=== PATIENT | female | born 1985 | race Caucasian/White ===

== ENCOUNTER 2022-07-13 15:40 | Outpatient (RCR) | payer OTHER ==
[2022-07-06 16:26] VITALS: BP 101/51
[2022-07-06] MEDS: FERRIC CARBOXYMALTOSE INJ 750 MG in NS (IVPB) 250 ML IV SCH (16:46)
[~2022-07-13] VITALS: Ht 157.2 cm; Wt 75.0 kg
[2022-07-13] MEDS: FERRIC CARBOXYMALTOSE INJ 750 MG in NS (IVPB) 250 ML IV SCH (15:56)
[2022-07-13 16:03] VITALS: BP 96/53
== END 2022-07-25 ==
LOC: SDC 15:40
PROVIDERS: ATTEND Internal Medicine
DX: D50.9 Iron deficiency anemia, unspecified (principal)
CPT/HCPCS: 96365

== ENCOUNTER 2023-03-19 10:21 | Emergency (ER) | payer OTHER ==
[2023-03-19] MEDS ORDERED: NS IV 1000 ML 1,000 ML IV STA ×2 (10:34→12:44)
[2023-03-19 10:42] LABS: BASOPHILS # (AUTO) 0.1 10^3/uL (0.0-0.1); BASOPHILS % (AUTO) 1 % (0-10); EOSINOPHILS # (AUTO) 0.1 10^3/uL (0.0-0.3); EOSINOPHILS % (AUTO) 1 % (0-10); HEMATOCRIT 43 % (35-52); HEMOGLOBIN 14.1 g/dL (11.5-16.0); LYMPHOCYTES # (AUTO) 2.3 10^3/uL (1.0-4.0); LYMPHOCYTES % (AUTO) 23 % (12-44); MEAN CORPUSCULAR HEMOGLOBIN 31 pg (25-34); MEAN CORPUSCULAR HGB CONC 33 g/dL (32-36); MEAN CORPUSCULAR VOLUME 93 fL (80-99); MEAN PLATELET VOLUME 10.4 fL (9.0-12.2); MONOCYTES # (AUTO) 0.5 10^3/uL (0.0-1.0); MONOCYTES % (AUTO) 5 % (0-12); NEUTROPHILS # (AUTO) 7.1 10^3/uL (1.8-7.8); NEUTROPHILS % (AUTO) 70 % (42-75); PLATELET COUNT 289 10^3/uL (130-400)
[2023-03-19 10:50] LABS: ALBUMIN 4.6 GM/DL (3.2-4.5); CHLORIDE 104 MMOL/L (98-107); POTASSIUM 4.2 MMOL/L (3.6-5.0); SODIUM 138 MMOL/L (135-145)
[2023-03-19 10:52] LABS: CALCIUM 9.8 MG/DL (8.5-10.1)
[2023-03-19 10:53] LABS: GLUCOSE 89 MG/DL (70-105); TOTAL PROTEIN 7.6 GM/DL (6.4-8.2)
[2023-03-19 10:54] LABS: BILIRUBIN,TOTAL 0.3 MG/DL (0.1-1.0); CARBON DIOXIDE 26 MMOL/L (21-32)
[2023-03-19 10:56] LABS: ALKALINE PHOSPHATASE 68 U/L (40-136)
[2023-03-19 10:57] LABS: CREATININE SERUM 0.72 MG/DL (0.60-1.30); GFR ESTIMATED 110
[2023-03-19 10:58] LABS: BUN/CREATININE RATIO 8
[2023-03-19 10:59] LABS: ALANINE AMINOTRANSFERASE 13 U/L (0-55); MAGNESIUM 2.2 MG/DL (1.6-2.4)
--- NOTE | 2023-03-19 11:11 | Diagnostic Imaging Report ---
PROCEDURE: CT head without contrast. TECHNIQUE: Multiple contiguous axial images were obtained through the brain without the use of intravenous contrast. Auto Exposure Controls were utilized during the CT exam to meet ALARA standards for radiation dose reduction. INDICATION: Lethargy and weakness. No prior studies are available for comparison. FINDINGS: Ventricles and sulci are within normal limits. No sulcal effacement or midline shift is identified. No acute intra-axial or extra-axial hemorrhage is detected. Cisterns are patent. Visualized paranasal sinuses are clear. IMPRESSION: No acute intracranial process is detected. Dictated by: Dictated on workstation # [id number]
--- NOTE | 2023-03-19 11:18 | ED General ---
General Chief Complaint: Altered Mental Status Stated Complaint: WEAKNESS/SLURRED WORDS/SHAKEY Nursing Triage Note: PT TO RM 1 PER W/C PT STATES CALLED HIM APPROX 1 HR AGO W LETHERAGY, WEAKNESS, AND BEING VERY TIRED. PT STATES ALL I WANT TO DO IS SLEEP. PT STATES TOOK 1/2 GUMMY LAST PM. PT IS ABLE TO OPEN EYES AND TALK TO STAFF. PT IS ABLE TO MOVE ALL EXT. History of Present Illness Date Seen by Provider: Mar 19, 2023 Time Seen by Provider: 10:25 Initial Comments 37-year-old female brought in by her because of complaints of lethargy, weakness and being very tired. Patient reports all she wants to do a sleep. Patient denies any recent illness fever or chills. Patient does report she took a half a gummy last night. She denies any other medications or drugs that she took today. She is able to answer all questions appropriately, open her eyes and talk to staff. She is also able to move all her extremities. Allergies and Home Medications Allergies Coded Allergies: wheat (Verified Allergy, Unknown, 07/06/22) Uncoded Allergies: lobster (Allergy, Unknown, 07/06/22) Patient Home Medication List Home Medication List Reviewed: Yes Review of Systems Review of Systems Constitutional: see HPI EENTM: no symptoms reported Respiratory: no symptoms reported Gastrointestinal: no symptoms reported Musculoskeletal: no symptoms reported Skin: no symptoms reported Psychiatric/Neurological: See HPI Past Avifdpv-Zredih-Hotilv Hx Patient Social History Tobacco Use?: No Substance use?: Yes Substance type: Marijuana Additional substance use comme: GUMMIES Substance frequency: Once in a while Alcohol Use?: No Pt feels they are or have been: No Immunizations Up To Date Influenza Vaccine Up-to-Date: No; Not Current First/Initial COVID19 Vaccinat: YES Second COVID19 Vaccination Brayden: YES Third COVID19 Vaccination Date: YES Past Medical History Surgery/Hospitalization HX: TUBAL, MIGRAINES AND IBS Last Menstrual Period: Mar 19, 2023 Physical Exam Vital Signs Vital Signs - First Documented 03/19/23 10:25 Temp 37.6 Pulse 79 Resp 17 B/P (MAP) 117/98 (104) Pulse Ox 100 O2 Delivery Room Air Capillary Refill : Less Than 3 Seconds Height, Weight, BMI Height: '" Weight: lbs. oz. kg; 30.34 BMI Method: General Appearance: No Apparent Distress Eyes: Bilateral Eye PERRL, Bilateral Eye EOMI HEENT: PERRL/EOMI, Moist Mucous Membranes Respiratory: Lungs Clear, Normal Breath Sounds Cardiovascular: Regular Rate, Rhythm, No Edema Extremity: Normal Capillary Refill, Normal Inspection, Normal Range of Motion Neurologic/Psychiatric: Oriented x3, No Motor/Sensory Deficits, Other (Fatigued acting) Skin: Normal Color, Warm/Dry Focused Exam Lactate Level 03/19/23 10:45: Lactic Acid Level 1.42 Lactic Acid Level Laboratory Tests Test 03/19/23 10:45 Lactic Acid Level 1.42 MMOL/L (0.50-2.00) Progress/Results/Core Measures Suspected Sepsis SIRS Temperature: Pulse: 79 Respiratory Rate: 17 Laboratory Tests 03/19/23 10:30: White Blood Count 10.0 Blood Pressure 117 /98 Mean: 104 03/19/23 10:45: Lactic Acid Level 1.42 Laboratory Tests 03/19/23 10:30: Creatinine 0.72, Platelet Count 289, Total Bilirubin 0.3 Results/Orders Lab Results Laboratory Tests Test 03/19/23 10:30 03/19/23 10:40 03/19/23 10:45 03/19/23 11:14 Range/Units White Blood Count 10.0 4.3-11.0 10^3/uL Red Blood Count 4.58 3.80-5.11 10^6/uL Hemoglobin 14.1 11.5-16.0 g/dL Hematocrit 43 35-52 % Mean Corpuscular Volume 93 80-99 fL Mean Corpuscular Hemoglobin 31 25-34 pg Mean Corpuscular Hemoglobin Concent 33 32-36 g/dL Red Cell Distribution Width 12.2 10.0-14.5 % Platelet Count 289 130-400 10^3/uL Mean Platelet Volume 10.4 9.0-12.2 fL Immature Granulocyte % (Auto) 0 % Neutrophils (%) (Auto) 70 42-75 % Lymphocytes (%) (Auto) 23 12-44 % Monocytes (%) (Auto) 5 0-12 % Eosinophils (%) (Auto) 1 0-10 % Basophils (%) (Auto) 1 0-10 % Neutrophils # (Auto) 7.1 1.8-7.8 10^3/uL Lymphocytes # (Auto) 2.3 1.0-4.0 10^3/uL Monocytes # (Auto) 0.5 0.0-1.0 10^3/uL Eosinophils # (Auto) 0.1 0.0-0.3 10^3/uL Basophils # (Auto) 0.1 0.0-0.1 10^3/uL Immature Granulocyte # (Auto) 0.0 0.0-0.1 10^3/uL Sodium Level 138 135-145 MMOL/L Potassium Level 4.2 3.6-5.0 MMOL/L Chloride Level 104 98-107 MMOL/L Carbon Dioxide Level 26 21-32 MMOL/L Anion Gap 8 5-14 MMOL/L Blood Urea Nitrogen 6 L 7-18 MG/DL Creatinine 0.72 0.60-1.30 MG/DL Estimat Glomerular Filtration Rate 110 BUN/Creatinine Ratio 8 Glucose Level 89 70-105 MG/DL Glucometer 90 70-110 MG/DL Calcium Level 9.8 8.5-10.1 MG/DL Corrected Calcium 8.5-10.1 MG/DL Magnesium Level 2.2 1.6-2.4 MG/DL Total Bilirubin 0.3 0.1-1.0 MG/DL Aspartate Amino Transf (AST/SGOT) 16 5-34 U/L Alanine Aminotransferase (ALT/SGPT) 13 0-55 U/L Alkaline Phosphatase 68 40-136 U/L C-Reactive Protein High Sensitivity 0.24 0.00-0.50 MG/DL Total Protein 7.6 6.4-8.2 GM/DL Albumin 4.6 H 3.2-4.5 GM/DL Serum Alcohol < 10 <10 MG/DL Influenza Type A (RT-PCR) Not Detected Not Detecte Influenza Type B (RT-PCR) Not Detected Not Detecte SARS-CoV-2 RNA (RT-PCR) Not Detected Not Detecte Lactic Acid Level 1.42 0.50-2.00 MMOL/L Urine Color YELLOW Urine Clarity CLEAR Urine pH 7.0 5-9 Urine Specific [place] 1.010 L 1.016-1.022 Urine Protein NEGATIVE NEGATIVE Urine Glucose (UA) NEGATIVE NEGATIVE Urine Ketones NEGATIVE NEGATIVE Urine Nitrite NEGATIVE NEGATIVE Urine Bilirubin NEGATIVE NEGATIVE Urine Urobilinogen 0.2 < = 1.0 MG/DL Urine Leukocyte Esterase TRACE H NEGATIVE Urine RBC (Auto) TRACE H NEGATIVE Urine RBC RARE /HPF Urine WBC 2-5 /HPF Urine Squamous Epithelial Cells 5-10 /HPF Urine Crystals NONE /LPF Urine Bacteria TRACE /HPF Urine Casts NONE /LPF Urine Mucus NEGATIVE /LPF Urine Culture Indicated NO Urine Opiates Screen NEGATIVE NEGATIVE Urine Oxycodone Screen NEGATIVE NEGATIVE Urine Methadone Screen NEGATIVE NEGATIVE Urine Propoxyphene Screen NEGATIVE NEGATIVE Urine Barbiturates Screen NEGATIVE NEGATIVE Ur Tricyclic Antidepressants Screen NEGATIVE NEGATIVE Urine Phencyclidine Screen NEGATIVE NEGATIVE Urine Amphetamines Screen NEGATIVE NEGATIVE Urine Methamphetamines Screen NEGATIVE NEGATIVE Urine Benzodiazepines Screen POSITIVE H NEGATIVE Urine Cocaine Screen NEGATIVE NEGATIVE Urine Cannabinoids Screen NEGATIVE NEGATIVE My Orders Orders - KINCAID,VALENTINA L DO Cbc And Automated Diff (03/19/23 10:34) Comprehensive Metabolic Panel (03/19/23 10:34) Hs C Reactive Protein (03/19/23 10:34) Drug Screen Stat (Urine) (03/19/23 10:34) Lactic Acid Analyzer (03/19/23 10:34) Magnesium (03/19/23 10:34) Ua Culture If Indicated (03/19/23 10:34) Influenza A And B By Pcr (03/19/23 10:34) Covid 19 Inhouse Test (03/19/23 10:34) Ct Head Wo (03/19/23 10:34) Ns Iv 1000 Ml (Ns Iv 1000 Ml) (03/19/23 10:34) Alcohol (03/19/23 12:03) Ketorolac Injection (Ketorolac Injection (03/19/23 12:44) Diphenhydramine Injection (Diphenhydram (03/19/23 12:44) Metoclopramide Injection (Metoclopramide (03/19/23 12:44) Ns Iv 1000 Ml (Ns Iv 1000 Ml) (03/19/23 12:44) Ekg Tracing (03/19/23 10:32) Vital Signs/I&O 03/19/23 10:25 Temp 37.6 Pulse 79 Resp 17 B/P (MAP) 117/98 (104) Pulse Ox 100 O2 Delivery Room Air Capillary Refill : Less Than 3 Seconds Blood Pressure Mean: 104 Point of Care Testing Finger Stick Blood Glucose: 90 Blood Glucose Action Taken: PROVIDER NOTIFIED Progress Note : Progress Note Patient's diagnostic studies were ordered reviewed and interpreted by me. Patient had no acute findings on any of her electrolytes, CBC. Patient had a negative head CT. Patient's UDS was positive for opiates otherwise no acute findings. Patient denies any opiate ingestion. Patient was able to answer all questions appropriately while she was here. She did appear to be somewhat fatigued/lethargic which would be consistent with possible opiate ingestion. Patient would have episodes with extremity shaking/tremoring but was not seizure-like activity as she would stop and talk to throughout. Patient was having a pseudoseizure type activity with these with unknown cause. Patient has a significant migraine history so is concerned about a possible migraine with aura causing her symptoms and she was treated with a migraine cocktail. Patient slept with no further "shaking activity". Patient will be discharged home with recommendations to follow-up with her neurologist due to her pseudo seizure-like activity and migraine history for further outpatient evaluation. She was stable upon discharge ECG Initial ECG Impression Date: Mar 19, 2023 Initial ECG Impression Time: 10:32 Initial ECG Rate: 78 Initial ECG Rhythm: Normal Sinus Initial ECG Impression: Normal Diagnostic Imaging Diagonstic Imaging: CT Plain Films/CT/US/NM/MRI: head Comments Date of Exam:03/19/23 CT HEAD WO PROCEDURE: CT head without contrast. TECHNIQUE: Multiple contiguous axial images were obtained through the brain without the use of intravenous contrast. Auto Exposure Controls were utilized during the CT exam to meet ALARA standards for radiation dose reduction. INDICATION: Lethargy and weakness. No prior studies are available for comparison. FINDINGS: Ventricles and sulci are within normal limits. No sulcal effacement or midline shift is identified. No acute intra-axial or extra-axial hemorrhage is detected. Cisterns are patent. Visualized paranasal sinuses are clear. IMPRESSION: No acute intracranial process is detected. Reviewed: Reviewed by Me, Reviewed/Discussed Departure Impression Primary Impression: Malaise and fatigue Additional Impressions: Migraine with aura Qualified Codes: G43.109 - Migraine with aura, not intractable, without status migrainosus Episode of shaking Disposition: 01 HOME, SELF-CARE Condition: Stable Departure-Patient Inst. Referrals: ANASTASIIA MONSON MD (PCP/Family) Primary Care Physician Patient Instructions: Generalized Weakness, Weakness ED, Migraines in adults Add. Discharge Instructions: Please follow-up with your neurologist for further evaluation. Please take all your medication as prescribed. All discharge instructions reviewed with patient and/or family. Voiced understanding. VALENTINA KINCAID DO Mar 19, 2023 11:18
[2023-03-19 11:32] LABS: AMPHETAMINE SCREEN, URINE NEGATIVE (NEGATIVE); BARBITURATE SCREEN URINE NEGATIVE (NEGATIVE); CANNABINOID SCREEN, URINE NEGATIVE (NEGATIVE); COCAINE SCREEN URINE NEGATIVE (NEGATIVE); METHADONE STAT NEGATIVE (NEGATIVE); OPIATE SCREEN URINE NEGATIVE (NEGATIVE); OXYCODONE STAT NEGATIVE (NEGATIVE); PROPOXYPHENE STAT NEGATIVE (NEGATIVE); TRICYCLIC ANTIDEPRESSANTS SCRE NEGATIVE (NEGATIVE)
[2023-03-19 11:39] LABS: BACTERIA,URINE TRACE /HPF; BILIRUBIN,URINE NEGATIVE (NEGATIVE); CLARITY,URINE CLEAR; COLOR,URINE YELLOW; GLUCOSE, URINE (UA) NEGATIVE (NEGATIVE); KETONES,URINE NEGATIVE (NEGATIVE); LEUKOCYTE ESTERASE ,URINE TRACE (NEGATIVE); NITRITE,URINE NEGATIVE (NEGATIVE); PROTEIN,URINE NEGATIVE (NEGATIVE); RBC,URINE RARE /HPF
[2023-03-19] MEDS ORDERED: diphenhydrAMINE INJ 50 MG/ML VIAL IVP ONE (12:00)
[2023-03-19] MEDS ORDERED: METOCLOPRAMIDE INJ 10 MG/2 ML IVP STA (12:44)
[2023-03-19] MEDS ORDERED: KETOROLAC INJ 30 MG/ML VIAL IVP STA (12:44)
[2023-03-19] MEDS ORDERED: diphenhydrAMINE INJ 50 MG/ML VIAL IV STA (12:44)
[2023-03-19 15:09] VITALS: BP 136/81
== END 2023-03-19 15:10 | disposition home or self-care (01) ==
LOC: EDUNIT# 10:21 → ER 10:25
DX: G43.109 Migraine with aura, not intractable, without status migrainosus (principal); R53.83 Other fatigue; R53.81 Other malaise; Z20.822 Contact with and (suspected) exposure to COVID-19
CPT/HCPCS: 70450; 80053; 80306; 81000; 82947; 83605; 83735; 85025; 86141; 87636; 93005; 99284; G0480; 36415; 80320; 96361; 96374; 96375